=== PATIENT | female | born 1965 | race Caucasian/White ===

== ENCOUNTER → 2017-01-19 | Outpatient (CLI) | payer MEDICARE | END | disposition home or self-care (01) | LOC: CFH 13:24 | PROVIDERS: ATTEND Internal Medicine | DX: Z12.31 Encounter for screening mammogram for malignant neoplasm of breast (principal) | CPT/HCPCS: G0202 ==

== ENCOUNTER 2020-01-17 08:10 | Day surgery (SDC) | payer MEDICARE ==
[~2020-01-17] VITALS: Ht 165.1 cm; Wt 104.4 kg
[2020-01-17 09:19] VITALS: BP 123/85
[2020-01-17] MEDS ORDERED: LACTATED RINGERS 1,000 ML IV SCH (09:25)
[2020-01-17] MEDS ORDERED: HYDROmorphone 1 MG/ML, 1ML INJ IVPush PRN (09:30)
[2020-01-17] MEDS ORDERED: DIPHENHYDRAMINE 50 MG/ML, 1ML IVPush PRN ×2 (09:30)
[2020-01-17] MEDS ORDERED: EPHEDRINE 50 MG/ML, 1ML IM PRN (09:30)
[2020-01-17] MEDS ORDERED: OXYcodone 5 MG/5 ML ORAL.SOL UDC PO PRN (09:30)
[2020-01-17] MEDS ORDERED: ONDANSETRON 2MG/ML, 2ML IVPush PRN (09:30)
[2020-01-17] MEDS ORDERED: hydrALAzine 20 MG/ML, 1ML IV PRN (09:30)
[2020-01-17] MEDS ORDERED: CHLORHEXIDINE 15 ML UDC MM ONE (09:30)
[2020-01-17] MEDS ORDERED: PROMETHAZINE 25 MG/ML, 1ML IVPush PRN (09:30)
[2020-01-17] MEDS ORDERED: LABETALOL 5MG/ML, 20ML IV PRN (09:30)
[2020-01-17] MEDS ORDERED: ALBUTEROL SULFATE 2.5 MG/3 ML NPPB PRN (09:30)
[2020-01-17] MEDS ORDERED: ACETAMINOPHEN 325 MG TABLET PO PRN (09:30)
[2020-01-17] MEDS ORDERED: MEPERIDINE/PF 25MG/0.5ML IVPush PRN (09:30)
[2020-01-17] MEDS ORDERED: PROMETHAZINE 12.5 MG SUPP PR PRN (09:30)
[2020-01-17] MEDS ORDERED: METHOCARBAMOL 1,000 MG in DEXTROSE 5% 100 ML IV PRN (09:30)
[2020-01-17] MEDS ORDERED: FENTANYL PF 100 MCG/2ML IV PRN (09:30)
[2020-01-17] MEDS ORDERED: MIDAZOLAM 1 MG/ML, 2ML IV PRN (09:30)
[2020-01-17] MEDS ORDERED: KETOROLAC 30 MG/1 ML IV PRN (09:30)
[2020-01-17] MEDS ORDERED: [UNRECOGNIZED DRUG - OTHER] PO (09:32)
[2020-01-17] MEDS ORDERED: OXYC-306 PO (09:32)
[2020-01-17] MEDS ORDERED: ASPIRIN PO (09:32)
[2020-01-17] MEDS ORDERED: ATEN25TA PO (09:32)
[2020-01-17] MEDS ORDERED: ESTRADIOL PO (09:33)
[2020-01-17] MEDS ORDERED: TIZANIDINE PO (09:33)
[2020-01-17] MEDS ORDERED: DULOXETINE PO (09:33)
[2020-01-17] MEDS ORDERED: LEVOTHYROXINE PO (09:33)
[2020-01-17] MEDS ORDERED: PHENERGAN (09:33)
[2020-01-17] MEDS ORDERED: FENTANYL PF 100 MCG/2ML ONE (09:54)
[2020-01-17] MEDS ORDERED: MIDAZOLAM 1 MG/ML, 2ML ONE (09:54)
[2020-01-17] MEDS ORDERED: PROPOFOL 50 ML ONE (09:57)
[2020-01-17] MEDS ORDERED: BUPIVACAINE/PF 0.5% ONE (10:19)
[2020-01-17] MEDS ORDERED: LIDOCAINE 1%, 20ML ONE (10:20)
[2020-01-17] MEDS ORDERED: ONDANSETRON 2MG/ML, 2ML ONE (10:32)
[2020-01-17] MEDS ORDERED: CEFAZOLIN 1,000 MG ONE (10:32)
== END 2020-01-17 12:00 | disposition home or self-care (01) ==
LOC: OUT 08:10
PROVIDERS: ATTEND Orthopaedic Surgery
DX: M65.332 Trigger finger, left middle finger (principal); Z20.828 Contact with and (suspected) exposure to other viral communicable diseases; G43.909 Migraine, unspecified, not intractable, without status migrainosus; G47.33 Obstructive sleep apnea (adult) (pediatric); M19.90 Unspecified osteoarthritis, unspecified site; E07.9 Disorder of thyroid, unspecified; Z79.82 Long term (current) use of aspirin; Z79.890 Hormone replacement therapy; Z79.891 Long term (current) use of opiate analgesic; Z79.899 Other long term (current) drug therapy; Z90.710 Acquired absence of both cervix and uterus; Z98.51 Tubal ligation status; Z98.890 Other specified postprocedural states; Z82.61 Family history of arthritis; Z82.3 Family history of stroke; Z82.49 Family history of ischemic heart disease and other diseases of the circulatory system
CPT/HCPCS: 26055; 87635; J0690; J2250; J2405; J2704; J3010; J7120